=== PATIENT | female | born 1965 | race Caucasian/White ===

== ENCOUNTER 2017-02-16 04:28 | Day surgery (SDC) | payer OTHER ==
[2017-02-09 11:22] LABS: HEMATOCRIT 34.5 % (36.0-48.0); HEMOGLOBIN 11.5 g/dL (12.0-16.0)
[2017-02-09 11:33] LABS: BUN (BLOOD UREA NITROGEN) 13 MG/DL (6-23); CALCIUM, SERUM 8.9 MG/DL (8.5-10.4); CHLORIDE, SERUM 102 MMOL/L (96-112); CO2 (CARBON DIOXIDE) 23 MMOL/L (24-34); CREATININE 0.95 MG/DL (0.55-1.02); GFR AFRICAN AMERICAN 82 ML/MIN (>=60); GFR NON AFRICAN AMERICAN 70 ML/MIN (>=60); GLUCOSE, SERUM 94 MG/DL (60-99); POTASSIUM, SERUM 4.3 MMOL/L (3.5-5.3); SODIUM, SERUM 133 MMOL/L (135-148)
--- NOTE | ~2017-02-16 | OP ---
Record Of Operation [facility] [address] [place]. [address] NAME: ELIZA BARON : 69 STATUS : REG [facility]#: [id number] AGE: 51 ADM/REG DATE : 02/16/17 MR#: [id number] REPORT SERV DATE: 02/16/17 DICTATED BY: BENI BELTRE DATE: 02/16/17 REPORT STATUS : Draft TRANSCRIBED BY: MODL DATE: 02/16/17 DATE OF PROCEDURE: 02/16/2017 PREOPERATIVE DIAGNOSIS: Right medial meniscus tear, early arthritis. POSTOPERATIVE DIAGNOSIS: Right medial meniscus tear, early arthritis. PROCEDURE: Right partial medial meniscectomy, chondroplasty of trochlea and medial femoral condyle, removal plica. COMPLICATIONS: None. ANESTHESIA: General endotracheal. INDICATIONS: This 51-year-old female was in Pain Management. She has had refractory knee pain. She has a physical exam and radiographic data consistent with a meniscus tear. She also had some early arthritis. She has failed nonoperative management. We discussed the potential of knee arthroplasty in the future. She wished to proceed with operative intervention after discussion of above. PROCEDURE IN DETAIL: The patient was induced in supine position. The right lower extremity was prepped and draped in standard surgical fashion. A time-out protocol was enforced. Ancef was administered. The anterolateral portal was created for diagnostic arthroscopy, which revealed near full thickness chondral loss of about 3 x 2 cm of the trochlea with full-thickness chondral loss at the area of the plica. ACL and PCL were normal. Lateral compartment had some fraying of the lateral meniscus, but otherwise intact. 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 Accessory medial portal was created. We resected the bursa and the plica went up into extension and debrided the plica. We performed a chondroplasty throughout the trochlea and the medial femoral condyle. The fibrillating cartilage was resected with a shaver. We went to a valgus stress and debrided the lateral meniscus fibrillation. Meniscectomy. We then went to a valgus stress. We were able to probe and enter into the horizontal cleavage tear of the meniscus. Straight, right, and up biters were used to debride the meniscus back to a stable margin. At the body horn junction, we maintained as much meniscus as possible here. The scope was withdrawn. The portals were closed with Monocryl. Steri-Strips were applied. The patient tolerated the procedure well and taken to the PACU in stable condition. POSTOPERATIVE PLAN: Early range of motion. Weightbearing as tolerated. Record Of Operation [facility] [id number] [place]. [address] NAME: ELIZA BARON : 69 STATUS : REG [facility] PAT#: [id number] AGE: 51 ADM/REG DATE : 02/16/17 MR#: [id number] REPORT SERV DATE: 02/16/17 DICTATED BY: BENI BELTRE DATE: 02/16/17 REPORT STATUS : Draft TRANSCRIBED BY: ERNIE DATE: 02/16/17 BSS/ERNIE Beni Beltre M.D. / [id number] CC: Beni Beltre M.D.
[~2017-02-16 04:28] MED LIST: ADVAIR250 INH; ASA5GR PO; BENTYL10 PO; CELEXA40 MG PO; CHLORZOXAZON500 MG OR; CRESTOR10 PO; DEPAKOTEER PO; FLEX PO; I20 PO; KLONO1 PO; LATUDA; LEVOTHYROXIN50 MCG PO; LEVOTHYROXIN75 MCG PO; LORTAB 5 PO; MOBIC15 MG PO; MULTIPLE VIT PO; NEUR300 PO; NICODERM C21 MG/241 TOP; PERCOCET1 TA2 PO; PERCOCET1 TA4 PO; PR25 PO; PRILO PO; RELPAX40 MG PO; ROXICODONE PO; SEROQUEL400 MG PO; SPIRO25 PO; TOPAMAX200 MG PO; TRAZ100 PO; TRAZ50 PO; TRAZODONE300 MG PO; TRILIPIX135 MG PO; VASOTEC10 PO; VENTOLIN HFA INH; VIST100 PO; ZANTAC150 MG PO; ZOL100 PO
[2017-07-07] MEDS ORDERED: LIPITOR20 PO (10:57)
[2017-07-07] MEDS ORDERED: MIRALAX POWDER1 PKT PO (10:59)
== END 2017-02-16 23:59 | disposition home or self-care (01) ==
LOC: SDC 04:28
PROVIDERS: Orthopaedic Surgery Sports Medicine
PROC: 0SBC4ZZ Excision of Right Knee Joint, Percutaneous Endoscopic Approach (ICD-10-PCS; principal; 2017-02-16 05:45)
DX: S83.241A Other tear of medial meniscus, current injury, right knee, initial encounter (principal); M25.561 Pain in right knee; M25.562 Pain in left knee; M48.06 Spinal stenosis, lumbar region; M17.0 Bilateral primary osteoarthritis of knee; I10 Essential (primary) hypertension; J44.9 Chronic obstructive pulmonary disease, unspecified; E03.9 Hypothyroidism, unspecified; F31.9 Bipolar disorder, unspecified; K86.1 Other chronic pancreatitis; F41.9 Anxiety disorder, unspecified; J45.909 Unspecified asthma, uncomplicated; F17.290 Nicotine dependence, other tobacco product, uncomplicated; Z98.51 Tubal ligation status; Z98.890 Other specified postprocedural states; Z88.5 Allergy status to narcotic agent; Z90.89 Acquired absence of other organs; Z98.82 Breast implant status
CPT/HCPCS: 80048; 85014; 85018; 93005; J0690; J1170; J2250; J2274; J2405; J3010